=== PATIENT | male | born 1980 | race Hispanic/Latino ===

== ENCOUNTER 2021-02-09 22:46 | Emergency (ER) | payer OTHER ==
[2021-02-10 01:33] LABS: Absolute Lymphocytes (CBC) 1.2 K/uL (0.7-4.9); Basophils % 1.2 % (0-1.3); Hematocrit 40.8 % (39.6-49.0); Lymphocytes % 9.3 % (15.3-44.8); MPV 7.5 fL (7.6-11.3); RBC Red Blood Cell Count 4.83 M/uL (4.33-5.43)
[2021-02-10 01:50] LABS: ALT/SGPT 50 U/L (12-78); AST/SGOT 29 U/L (15-37); Alkaline Phosphatase 127 U/L (45-117); BUN Blood Urea Nitrogen 22 mg/dL (7-18); Bicarbonate 25 mmol/L (21-32); Bilirubin Direct < 0.1 mg/dL (0-0.2); Bilirubin Total 0.3 mg/dL (0.2-1.0); Glucose Level 117 mg/dL (74-106); Lipase 70 U/L (73-393); Potassium 3.7 mmol/L (3.5-5.1); Protein, Total 7.8 g/dL (6.4-8.2); Sodium Level 141 mmol/L (136-145)
[2021-02-10] MEDS ORDERED: NA CHLORIDE 0.9% 1,000 ML ONE (01:53)
[2021-02-10] MEDS ORDERED: ONDANSETRON 4 MG/2 ML VIAL ONE (01:53)
[2021-02-10] MEDS ORDERED: MORPHINE 4 MG/ML SYR ONE (01:53)
--- NOTE | 2021-02-10 03:56 | ER ---
Nurse's Notes [facility] Name: Miguel Brown Age: 40 yrs Sex: Male : 1980 Arrival Date: 02/09/2021 Time: 22:50 Bed 17 Private MD: Diagnosis: Umbilical hernia without obstruction or gangrene-reduced Presentation: 02/09 23:11 Chief complaint: Patient states: RLQ pain since Thursday. Vomitted twice today. Pain in mw umbilicus as well. Lots of belching since 8 pm tonight. soft stool . Emesis is described as brown EMS states: Ate a lot at restaurant tonight. Coronavirus screen: At this time, the client does not indicate any symptoms associated with coronavirus-19. Initial Sepsis Screen: Does the patient meet any 2 criteria? No. Patient's initial sepsis screen is negative. Risk Assessment: Do you want to hurt yourself or someone else? Patient reports no desire to harm self or others. Onset of symptoms was February 05, 2021. 23:11 Method Of Arrival: Ambulatory 23:11 Acuity: BENJAMÍN 3 mw Triage Assessment: 23:15 General: Appears uncomfortable, Behavior is calm, cooperative. Pain: Complains of pain mw in abdomen Pain currently is 10 out of 10 on a pain scale. GI: Reports gaseousness. Historical: - Allergies: 23:15 No Known Allergies; - Home Meds: 23:15 None [Active]; mw - PMHx: 23:15 None; mw - PSHx: 23:15 None; - Immunization history:: Client reports receiving the 2nd dose of the Covid vaccine. - Social history:: Smoking status: Patient denies any tobacco usage or history of. Patient uses alcohol, occasionally. Screenin/15 01:10 Abuse screen: Denies threats or abuse. Nutritional screening: No deficits noted. em Tuberculosis screening: No symptoms or risk factors identified. Fall Risk None identified. Assessment: 01:43 General: Appears in no apparent distress. comfortable, Behavior is calm, cooperative. em Pain: Complains of pain in abdomen Pain currently is 9 out of 10 on a pain scale. Neuro: Level of Consciousness is awake, alert, obeys commands, Oriented to person, place, time, situation. Cardiovascular: Capillary refill < 3 seconds Patient's skin is warm and dry. Respiratory: Airway is patent Respiratory effort is even, unlabored, Respiratory pattern is regular, symmetrical. GI: Abdomen is flat, Abd is soft X 4 quads Abdomen is tender to palpation in right lower quadrant and left lower quadrant. : Denies burning with urination. Derm: Skin is intact, is healthy with good turgor, Skin is pink, warm \T\ dry. Musculoskeletal: Capillary refill < 3 seconds, Range of motion: intact in all extremities. 02:03 Reassessment: Patient appears in no apparent distress at this time. Patient and/or em family updated on plan of care and expected duration. Pain level reassessed. Patient is alert, oriented x 3, equal unlabored respirations, skin warm/dry/pink. Vital Signs: 02/09 23:11 BP 145 / 99; Pulse 71; Resp 14; Temp 98.6; Pulse Ox 100% on R/A; Weight 79.83 kg; Height 5 ft. 5 in. (165.10 cm); Pain 04/07; 02/10 02:00 BP 135 / 87; Pulse 68; Resp 16; Pulse Ox 99% on R/A; em 02/09 23:11 Body Mass Index 29.29 (79.83 kg, 165.10 cm) ED Course: 02/09 22:50 Patient arrived in ED. cf2 23:15 Triage completed. 23:15 Arm band placed on left wrist. 02/10 01:10 Varun Frazier, RN is Primary Nurse. em 01:10 Patient has correct armband on for positive identification. em 01:17 Patrice Castorena PA is PHCP. cp 01:17 Raffy Sue MD is Attending Physician. cp 01:20 Initial lab(s) drawn, by ma, sent to lab. Inserted saline lock: 20 gauge in left em antecubital area, using aseptic technique. Blood collected. 02:33 CT Abd/Pelvis - IV Contrast Only In Process Unspecified. EDMS 03:55 Davion Rodríguez MD is Referral Physician. cp 04:10 No provider procedures requiring assistance completed. IV discontinued, intact, em bleeding controlled, No redness/swelling at site. Pressure dressing applied. Administered Medications: 01:34 Drug: morphine 4 mg Route: IVP; Site: left antecubital; em 03:38 Follow up: Response: No adverse reaction; Marked relief of symptoms em 01:34 Drug: Zofran (Ondansetron) 4 mg Route: IVP; Site: left antecubital; em 03:38 Follow up: Response: No adverse reaction; Marked relief of symptoms em 01:34 Drug: NS 0.9% 1000 ml Route: IV; Rate: 1 bolus; Site: left antecubital; em 03:38 Follow up: IV Status: Completed infusion; IV Intake: 1000ml em Intake: 03:38 IV: 1000ml; Total: 1000ml. em Outcome: 03:55 Discharge ordered by MD. cp 04:10 Discharged to home ambulatory. em 04:10 Condition: improved 04:10 Discharge instructions given to patient, Instructed on discharge instructions, follow up and referral plans. Demonstrated understanding of instructions, follow-up care. 04:12 Patient left the ED. em Signatures: Dispatcher [employer] Dilma Franks RN RN mw Munoz, Edgar, RN RN em Patrice Castorena PA PA Richie Holt cf2 Corrections: (The following items were deleted from the chart) 02/09 23:19 23:11 Chief complaint: Patient states: RLQ pain since Thursday. Vomitted twice today. mw Pain in umbilicus as well. Lots of belching since 8 pm tonight. soft stool . Emesis is described as brown mw
--- NOTE | 2021-02-10 03:56 | EDPHYS ---
Physician Documentation [facility] Name: Miguel Brown Age: 40 yrs Sex: Male : 1980 Arrival Date: 02/09/2021 Time: 22:50 Bed 17 Private MD: ED Physician Raffy Sue HPI: 02/10 01:30 This 40 yrs old Male presents to ER via Ambulatory with complaints of cp Abdominal Pain. 01:30 The patient presents with abdominal pain in the periumbilical area. Onset: The cp symptoms/episode began/occurred 5 days ago, pain resolved and then returned yesterday. Patient reports pain started after lifting heavy object at work. Patient reports history of umbilical hernia for years. 01:30 Associated signs and symptoms: Pertinent positives: nausea and vomiting, Pertinent cp negatives: blood in stools, chest pain, constipation, diarrhea, fever, testicular pain. 01:30 The symptoms are described as constant. Severity of pain: in the emergency department cp the pain is a 10 / 10. Historical: - Allergies: 02/09 23:15 No Known Allergies; mw - Home Meds: 23:15 None [Active]; mw - PMHx: 23:15 None; mw - PSHx: 23:15 None; mw - Immunization history:: Client reports receiving the 2nd dose of the Covid vaccine. - Social history:: Smoking status: Patient denies any tobacco usage or history of. Patient uses alcohol, occasionally. ROS: 02/10 01:35 Constitutional: Negative for body aches, chills, fever. cp 01:35 Eyes: Negative for injury, pain, redness, and discharge. cp 01:35 ENT: Negative for ear pain, sore throat, difficulty swallowing, difficulty handling secretions. 01:35 Cardiovascular: Negative for chest pain. 01:35 Respiratory: Negative for cough, shortness of breath, wheezing. 01:35 Abdomen/GI: Positive for abdominal pain, nausea and vomiting, Negative for diarrhea, constipation, anorexia, black/tarry stool, rectal bleeding. 01:35 Neuro: Negative for altered mental status, headache, weakness. 01:35 All other systems are negative. Exam: 01:40 Constitutional: The patient appears in no acute distress, alert, awake, non-toxic, well cp developed, well nourished. 01:40 Head/Face: Normocephalic, atraumatic. cp 01:40 Eyes: Periorbital structures: appear normal, Conjunctiva: normal, no exudate, no injection, Sclera: no appreciated abnormality, Lids and lashes: appear normal, bilaterally. 01:40 ENT: External ear(s): are unremarkable, Nose: is normal, Mouth: Lips: moist, Oral mucosa: pink and intact, moist, Posterior pharynx: Airway: no evidence of obstruction, patent. 01:40 Chest/axilla: Inspection: normal, Palpation: is normal, no crepitus, no tenderness. 01:40 Cardiovascular: Rate: normal, Rhythm: regular. 01:40 Respiratory: the patient does not display signs of respiratory distress, Respirations: normal, no use of accessory muscles, no retractions, labored breathing, is not present, Breath sounds: are clear throughout, no decreased breath sounds, no stridor, no wheezing. 01:40 Abdomen/GI: Inspection: distension, is not seen, Bowel sounds: active, all quadrants, Palpation: soft, in all quadrants, severe abdominal tenderness, in the umbilical area and right lower quadrant, rebound tenderness, is not appreciated, voluntary guarding, is elicited in the umbilical area and right lower quadrant, Hernia: noted in the umbilical area, tenderness, that is severe. 01:40 Back: pain, is absent, ROM is normal. 01:40 Skin: no rash present. Vital Signs: 02/09 23:11 BP 145 / 99; Pulse 71; Resp 14; Temp 98.6; Pulse Ox 100% on R/A; Weight 79.83 kg; mw Height 5 ft. 5 in. (165.10 cm); Pain 1010; 08 02:00 BP 135 / 87; Pulse 68; Resp 16; Pulse Ox 99% on R/A; em 02/09 23:11 Body Mass Index 29.29 (79.83 kg, 165.10 cm) mw MDM: 01:22 Patient medically screened. cp 01:30 Differential diagnosis: appendicitis, bowel obstruction, Ureterolithiasis, urinary cp tract infection, incarcerated hernia. 03:30 Data reviewed: vital signs, nurses notes, lab test result(s), radiologic studies, plain cp films. 03:50 Physician consultation: Davion Rodríguez MD was called at 03:50, was contacted at 03:50, cp regarding consult, patient's condition, and will see patient in office, in 2-3 days, wants patient on clear liquid diet and to return immediately to ED pain returns, intolerant of po liquids. 02/10 01:11 Order name: Basic Metabolic Panel em 02/10 01:11 Order name: CBC with Diff; Complete Time: 02:05 em 02/10 01:11 Order name: Hepatic Function; Complete Time: 02:05 em 02/10 01:11 Order name: Lipase; Complete Time: 02:05 em 02/10 01:11 Order name: Basic Metabolic Panel; Complete Time: 02:05 EDMS 02/10 01:11 Order name: IV Saline Lock; Complete Time: :20 em 02/10 01:11 Order name: Labs collected and sent; Complete Time: :20 em 02/10 02:05 Order name: CT Abd/Pelvis - IV Contrast Only cp Administered Medications: 01:34 Drug: morphine 4 mg Route: IVP; Site: left antecubital; em 03:38 Follow up: Response: No adverse reaction; Marked relief of symptoms em 01:34 Drug: Zofran (Ondansetron) 4 mg Route: IVP; Site: left antecubital; em 03:38 Follow up: Response: No adverse reaction; Marked relief of symptoms em 01:34 Drug: NS 0.9% 1000 ml Route: IV; Rate: 1 bolus; Site: left antecubital; em 03:38 Follow up: IV Status: Completed infusion; IV Intake: 1000ml em Disposition: 06:50 Co-signature as Attending Physician, Raffy Sue MD. [email or web address] Disposition Summary: 02/10/21 03:55 Discharge Ordered Location: Home cp Problem: new cp Symptoms: have improved cp Condition: Stable cp Diagnosis - Umbilical hernia without obstruction or gangrene - reduced(02/10/21 04:05) cp Followup: cp - With: Davion Rodríguez MD - When: 2 - 3 days - Reason: Recheck today's complaints Discharge Instructions: - Discharge Summary Sheet cp - Clear Liquid Diet, Adult cp - Umbilical Hernia, Adult cp Forms: - Medication Reconciliation Form cp - Work release form em - Thank You Letter cp - Antibiotic Education cp - Prescription Opioid Use cp Signatures: Dispatcher [employer] Dilma Franks RN Varun Blount RN RN Patrice Ballard PA PA cp Holmes, Maurice, MD MD [email or web address] Corrections: (The following items were deleted from the chart) 03:54 03:24 CORONAVIRUS+ ordered. EDMS EDMS 04:05 03:55 Umbilical hernia without obstruction or gangrene bren cp
[2021-02-10 04:20] VITALS: TEMP 98.6
[2021-02-10 04:21] VITALS: BP 135/87; O2SAT 99
--- NOTE | 2021-02-11 12:42 | RAD REPORT ---
EXAM DESCRIPTION: CT - Abdomen Pelvis W Contrast - 02/10/2021 6:37 am COMPARISON: None CLINICAL HISTORY: Abdominal pain TECHNIQUE: Multiple helical axial images were obtained through the abdomen and pelvis without intrav enous contrast. Sagittal and coronal reformatted images are reviewed as well. All CT scans at this facility use dose modulation, iterative reconstruction, and/or weight-based dosi ng when appropriate to reduce radiation dose to as low as reasonably achievable. Findings: Lung bases: Unremarkable. Liver: Homogenous attenuation is demonstrated. Gallbladder/biliary: Gallbladder appears unremarkable. No calcified gallstones. No evidence of biliar y ductal dilatation. Pancreas: Unremarkable. Spleen: Unremarkable. Adrenals: Unremarkable. Kidneys and ureters: No evidence of renal or ureteral stones. No hydronephrosis. Bladder: Unremarkable. Pelvic organs: Prostate is mildly enlarged. Bowel: There are a few mildly dilated small bowel loops in the mid abdomen. Possible transition betwe en dilated and decompressed small bowel beneath the right anterior abdominal wall (series 501, image 50). No bowel wall thickening. Appendix appears unremarkable. Peritoneum: No free air. No significant free fluid. Lymph nodes: Unremarkable. Vasculature: Unremarkable. Soft tissues: Small fat-containing umbilical hernia is present. Bones: Unremarkable. IMPRESSION: 1. Few mildly dilated small bowel loops in the mid abdomen with possible transition betw een dilated and decompressed small bowel beneath the right anterior abdominal wall which may be relat ed to partial small bowel obstruction. 2. Fat-containing umbilical hernia. Electronically signed by: Herve Jones MD 02/10/2021 2:59 AM CDT Due to temporary technical issues with the PACS/Fluency reporting system, reports are being signed by the in house radiologist without review as a courtesy to ensure prompt reporting. The interpreting r adiologist is fully responsible for the content of the report.
== END 2021-02-10 04:12 | disposition home or self-care (01) ==
LOC: ER 22:46
DX: K42.9 Umbilical hernia without obstruction or gangrene (principal); Z20.822 Contact with and (suspected) exposure to COVID-19
CPT/HCPCS: 96361; 85025; 80048; 36415; 80076; 83690; 74177; 96375; 96374; 99284; U0003; Q9967; J7030; J2405

== ENCOUNTER 2021-02-22 08:22 | Day surgery (SDC) | payer OTHER ==
[2021-02-22] MEDS ORDERED: Ringers Lactate 1,000 ML IV ONE (09:02)
[2021-02-22] MEDS ORDERED: MIDAZOLAM HCL 2 MG/2 ML INJ ONE (09:54)
[2021-02-22] MEDS ORDERED: propofoL 200 MG/20 ML VIAL IV ONE (09:54)
[2021-02-22] MEDS ORDERED: FENTANYL CITR 100 MCG/2 ML ONE ×2 (09:54→10:54)
[2021-02-22] MEDS ORDERED: LIDOCAINE 1% MPF 5 ML VIAL ONE (09:55)
[2021-02-22] MEDS ORDERED: ROCURONIUM 50 MG/5 ML VIAL IV ONE (09:55)
[2021-02-22] MEDS: CEFAZOLIN/SWI 2gm 2 GM/20 ML SYR ONE ×2 (09:56→10:20)
[2021-02-22] MEDS ORDERED: BUPIVACAINE 0.25% PF 10 ML VIAL ONE (10:23)
[2021-02-22] MEDS ORDERED: LIDOCAINE JELLY 2%- 5 ML TUBE ONE (10:42)
[2021-02-22] MEDS ORDERED: KETOROLAC 30 MG/ML INJ ONE (10:55)
--- NOTE | 2021-02-22 11:09 | P.OP ---
Preoperative diagnosis: Umbilical Hernia Postoperative diagnosis: Umbilical Hernia Primary procedure: Open Umbilical Hernia Repair with mesh Anesthesia: GETA Local Estimated blood loss: <10cc Specimen: none Findings: reducible umbilical hernia Complications: None Implants: 4.3 cm Bard Ventralex mesh with strap Transferred to: Recovery Room Condition: Good
[2021-02-22] MEDS ORDERED: GLYCOPYRROLATE 0.2 MG/ML SYR ONE (11:25)
[2021-02-22] MEDS ORDERED: ONDANSETRON 4 MG/2 ML VIAL ONE (11:25)
[2021-02-22] MEDS ORDERED: NEOSTIGMINE 1 MG/ML -5 ML ONE (11:25)
[2021-02-22 12:34] VITALS: BP 127/88; TEMP 97.9; O2SAT 100
[2021-02-22] MEDS ORDERED: HYDROCODONE/APAP 10/325 TAB ONE (12:54)
--- NOTE | 2021-02-22 17:10 | OP ---
Date of Procedure: 02/22/2021 Surgeon: Davion Rodríguez MD, Preoperative Diagnosis: Umbilical Hernia. Postoperative Diagnosis: Umbilical Hernia. Procedure: Open umbilical hernia repair with mesh. Anesthesia: General endotracheal plus local with 0.25% Marcaine. Estimated Blood Loss: Less than 10 cc. Specimen: None. Findings: Reducible umbilical hernia. Complications: None. Implants: A 4.3 cm Bard Ventralex mesh with strap. Disposition: The patient was transferred to recovery room in good condition. Procedure In Detail: After informed consent was obtained, the patient was brought to the operating r oom, prepped and draped in the usual sterile fashion. After adequate anesthesia was achieved, an are a at the infraumbilical skin was then anesthetized with 0.25% Marcaine, sharply incised with a 15 franck de down to subcutaneous tissues. Dissection continued down using electrocautery to expose the hernia sac. The hernia sac was grabbed, elevated and opened sharply using Metzenbaum scissors. The hernia contents were then reduced to the preperitoneal space and found be consistent with omental tissue. After this was reduced to the preperitoneal position, a finger sweep was performed. The hernia defec t was found to be approximately 1.8 cm circumferentially. I then performed a finger sweep and found that there was a good landing zone for the Bard Ventralex approximately 4.3 cm round mesh to be place d in the preperitoneal space. At this point, using #1 PDS sutures, parachuted in the 4.3 cm Bard Mario tralex mesh with straps in the preperitoneal space and secured it circumferentially with good apposit ion of the tissues. I then closed the defect/fascia over the top using the same set of #1 PDS suture without incident or complication. I then irrigated the area copiously and closed the deep dermal pl ane using interrupted 3-0 Vicryl suture and the skin was closed with 4-0 Monocryl in a running fashio n with Dermabond placed over the top. The patient tolerated the procedure well without evidence of c omplication, and transferred to PACU in good condition. All counts were correct at the end of the ca se. TK/MODL Voice ID: [id number] Report ID: [id number]
== END 2021-02-22 12:47 | disposition home or self-care (01) ==
LOC: OR 08:22
PROVIDERS: ATTEND Surgery
PROC: 0WUF0JZ Supplement Abdominal Wall with Synthetic Substitute, Open Approach (ICD-10-PCS; principal; 2021-02-22 09:30)
DX: K42.0 Umbilical hernia with obstruction, without gangrene (principal); Z20.822 Contact with and (suspected) exposure to COVID-19
CPT/HCPCS: 49585; U0003; J2704; J2250; J3010 ×2; J2710; J0690; J7120; J2405